=== PATIENT | female | born 1985 | race Caucasian/White ===

== ENCOUNTER 2020-06-01 18:09 | Inpatient (IN) | payer OTHER, SELFPAY ==
[~2020-06-01] VITALS: Ht 152.4 cm; Wt 69.4 kg
[2020-06-01] MEDS ORDERED: LACTATED RINGERS 1,000 ML IV SCH (18:30)
[2020-06-01] MEDS ORDERED: OXYTOCIN 20 UNITS in LACTATED RINGERS 1,000 ML IV SCH (18:30)
[2020-06-01] MEDS ORDERED: PROMETHAZINE 25 MG/ML VIAL IVP PRN (18:30)
[2020-06-01] MEDS ORDERED: METHYLERGONOVINE 0.2 MG/ML AMP IM PRN (18:30)
[2020-06-01] MEDS ORDERED: CARBOPROST 250 MCG/ML AMP IM PRN (18:30)
[2020-06-01 19:03] VITALS: BP 109/68
[2020-06-01 19:17] LABS: BASOPHILS % (AUTO) 0.4 % (0.0-2.0); EOSINOPHILS # (AUTO) 0.1 K/uL (0-0.4); EOSINOPHILS % (AUTO) 1.4 % (0.0-4.0); HEMATOCRIT 37.2 % (36-48); HEMOGLOBIN 12.4 g/dL (12.0-16.0); LYMPHOCYTES % (AUTO) 27.4 % (20.5-51.1); MEAN CORPUSCULAR HEMOGLOBIN 30 pg (27-31); MEAN CORPUSCULAR HGB CONC 33 g/dL (33-37); MEAN CORPUSCULAR VOLUME 89.9 fL (80-94); MONOCYTES # (AUTO) 0.4 K/uL (0.8-1.0); MONOCYTES % (AUTO) 5.4 % (1.7-9.3); NEUTROPHILS # (AUTO) 4.9 K/uL (1.8-7.7); NEUTROPHILS % (AUTO) 65.4 % (42.2-75.2); PLATELET COUNT (AUTO) 260 K/uL (140-450); RED BLOOD CELL COUNT(AUTO) 4.14 MIL/uL (4.20-5.40); RED CELL DISTRIBUTION WIDTH 14.6 % (11.6-13.7); WHITE BLOOD COUNT (AUTO) 7.5 K/uL (4.8-10.8)
[2020-06-01 19:20] LABS: APPEARANCE,URINE HAZY (CLEAR); BILIRUBIN,URINE NEGATIVE (NEGATIVE); BLOOD, URINE NEGATIVE (NEGATIVE); COLOR,URINE YELLOW (YELLOW); LEUKOCYTE ESTERASE ,URINE 2+ (NEGATIVE); NITRITE, URINE NEGATIVE (NEGATIVE); PH,URINE 6.5 (5.0-9.0); UGLUCOSE NEGATIVE (NEGATIVE)
[2020-06-01] MEDS ORDERED: ONDANSETRON 4 MG/2 ML VIAL IVP PRN (19:25)
[2020-06-01] MEDS ORDERED: MORPHINE SULFATE 4 MG/ML SYR IVP PRN (19:25)
[2020-06-01 19:33] LABS: ALBUMIN 2.6 g/dL (3.4-5.0); ANION GAP 14.1 (8-16); POTASSIUM 4.1 mmol/L (3.5-5.1); TOTAL BILIRUBIN 0.3 mg/dL (0.0-1.0)
[2020-06-01] MEDS ORDERED: PNV91TAB8 PO (19:33)
[2020-06-01 20:07] LABS: RBC,URINE 0 /HPF (0-5); WBC,URINE 16-25 (MOD) /HPF (0-5)
[2020-06-01] MEDS ORDERED: OXYTOCIN 20 UNITS/LR PREMIX 1,000 ML IV ONE (21:04)
[2020-06-02] MEDS ORDERED: ONDANSETRON 4 MG/2 ML VIAL ONE (03:00)
[2020-06-02] MEDS ORDERED: LIDOCAINE 1% 500 MG/50 ML VIAL ONE (04:55)
[2020-06-02] MEDS ORDERED: OXYTOCIN 10 UNITS/ML VIAL IM PRN ×2 (05:10→07:15)
[2020-06-02] MEDS ORDERED: BENZOCAINE/MENTHOL 20%-0.5% 60 GM CAN TP PRN ×2 (05:10→07:15)
[2020-06-02] MEDS ORDERED: IBUPROFEN 800 MG TAB PO PRN ×2 (05:10→07:15)
[2020-06-02] MEDS ORDERED: METHYLERGONOVINE 0.2 MG TAB PO PRN ×2 (05:10→07:15)
[2020-06-02] MEDS ORDERED: MEASLES, MUMPS, AND RUBELLA 1 VIAL SQVAC PRN ×2 (05:10→07:15)
[2020-06-02] MEDS ORDERED: METHYLERGONOVINE 0.2 MG/ML AMP IM PRN ×2 (05:10→07:15)
[2020-06-02] MEDS ORDERED: SIMETHICONE 80 MG TAB.CHEW PO PRN (07:15)
[2020-06-02] MEDS ORDERED: IBUPROFEN 600 MG TAB PO PRN (07:15)
[2020-06-02] MEDS ORDERED: DOCUSATE SODIUM 100 MG GELCAP PO PRN (07:15)
[2020-06-02] MEDS ORDERED: bisacodyL 5 MG TABEC PO PRN (07:15)
--- NOTE | 2020-06-02 09:03 | NUR ---
PATIENT HAS BEEN SCREENED AND CATEGORIZED LOW NUTRITION RISK. PATIENT WILL BE SEEN WITHIN 7 DAYS OF ADMISSION. 06/08/[address]
[2020-06-02 10:33] LABS: HEMOGLOBIN 12.3 g/dL (12.0-16.0)
[2020-06-03 05:26] LABS: HEMATOCRIT 36.1 % (36-48); HEMOGLOBIN 12.1 g/dL (12.0-16.0)
== END 2020-06-03 15:39 | disposition home or self-care (01) | DRG 560 ==
LOC: MLD 18:09 → OBSVTOIN 18:09 → MFCC 06-02 06:30
PROVIDERS: ADMIT Obstetrics & Gynecology; ATTEND Obstetrics & Gynecology
PROC: 0HQ9XZZ Repair Perineum Skin, External Approach (ICD-10-PCS; principal; 2020-06-02)
PROC: 3E033VJ Introduction of Other Hormone into Peripheral Vein, Percutaneous Approach (ICD-10-PCS; 2020-06-02)
PROC: 10E0XZZ Delivery of Products of Conception, External Approach (ICD-10-PCS; 2020-06-02)
DX: O70.0 First degree perineal laceration during delivery (principal); O69.81X0 Labor and delivery complicated by cord around neck, without compression, not applicable or unspecified; O23.43 Unspecified infection of urinary tract in pregnancy, third trimester; Z3A.39 39 weeks gestation of pregnancy; Z37.0 Single live birth
CPT/HCPCS: 36415; 59409; 76815; 80053; 81001; 85018; 85025; 86592; 86886; 86900; 86901; 87086; 90715; J0696; J2001; J2270; J2405; J2590; J7060; J7120; Q0092

== ENCOUNTER 2021-12-30 10:13 | Day surgery (SDC) | payer OTHER ==
[~2021-12-30] VITALS: Ht 157.5 cm; Wt 61.7 kg
[~2021-12-30 10:13] MED LIST: PNV91TAB8 PO
[2021-12-30] MEDS ORDERED: ALBUTEROL 0.083% 2.5 MG/3 ML NEBU INH ONE (11:45)
--- NOTE | 2021-12-30 11:45 | NUR ---
TOLD BY OTHER RT CALLED RECEIVED ABOUT EMERGENT BREATHING TREATMENT FOR PT IN RM#[id number], I ARRIVED AT ROOM#103, AND NO PATIENT OR NURSE WAS PRESENT, I WALKED OVER TO THE OPERATING ROOM, AND WAS GREETED BY DR. Jim AVILA WITH ORDERS " GIVE HER 15CC'S NOW!" I ASKED dR. AVILA WHAT HE WANTED TO GIVE THE PT EXACTLY. HE AGAIN STATED ALBUTEROL 15CC'S NOW. I EXPLAINED TO DR. AVILA, OUR ALBUTEROL WOULD BE 2.5MG/3ML OF SOLUTION, I ASKED HIM AGAIN AND SAID GIVE THE PT 15MG'S OF ALBUTEROL. I ASKED IF HE COULD PUT IN THE ORDER, HE TOLD THE NURSE TO PUT IN THE ORDER. THE NURSE PUT IN AN ORDER FOR RT REQUEST FOR SERVICE: ALBUTEROL NEBULIZER 15MG. THERE WAS NEVER AN ORDER ISSUED FOR ALBUTEROL. WITH DR. AVILA LOOKING OVER MY SHOULDER I ENTERED MY USERNAME AND ACCESSED THE MEDICATIONS IN THE P[facility], I OVER RODE THE PYXIS TO REMOVE THE REQUIRED 6 VIALS OF 2.5MG/ 3ML OF 0.083% ALBUTEROL. I ONCE AGAIN RECEVIED VERBAL ORDERS FROM THE DR FOR 15MGS OF ALBUTEROL. I RAN TO THE ICU EQUIPMENT PYXIS TO RETRIEVE A NEBULIZER, AND I WAS PUTTING MY EQUIPMENT TOGETHER, DR. AVILA THEN ORDERED ME TO ADMINISTER 10MG OF ALBUTEROL. I PLACED THE 4 VIALS OF ALBUTEROL IN THE NEBULIZER AND ADMINISTERED THE TREATMENT. THE TREATMENT STARTED AT 1150, AT 1155, DR AVILA ORDERED ME TO STOP THE TREATMENT AT 1205. AT 1200, AUSTIN GARCIA [id number] ME TO REMOVE THE TREATMENT AND THE PT WAS WHEELED TO SURGERY. THE PT.S SATURATIONS MAINTAINED AT 99% THROUGHOUT THE TREATMENT.
[2021-12-30] MEDS ORDERED: SEVOFLURANE 250 ML BTL INH ONE (12:03)
[2021-12-30] MEDS ORDERED: fentaNYL citrate 0.05 MG/ML VIAL ONE (12:03)
[2021-12-30] MEDS ORDERED: PROPOFOL 200 MG/20 ML VIAL IV ONE (12:10)
[2021-12-30] MEDS ORDERED: LIDOCAINE/EPI 1% 1:100000 20 ML VIAL INJ ONE (12:19)
[2021-12-30] MEDS ORDERED: ONDANSETRON 4 MG/2 ML VIAL ONE (12:36)
[2021-12-30] MEDS ORDERED: METOCLOPRAMIDE 10 MG/2 ML INJ VIAL ONE (12:37)
[2021-12-30] MEDS ORDERED: KETOROLAC 30 MG/ML VIAL ONE (12:38)
[2021-12-30] MEDS ORDERED: LABETALOL 100 MG/20 ML VIAL IVP PRN (13:20)
[2021-12-30] MEDS ORDERED: diphenhydrAMINE 50 MG/ML VIAL IVP PRN (13:20)
[2021-12-30] MEDS ORDERED: LACTATED RINGERS 1,000 ML IV SCH (13:20)
[2021-12-30] MEDS ORDERED: HYDROmorphone 1 MG/ML AMP IVP PRN (13:20)
[2021-12-30] MEDS ORDERED: ONDANSETRON 4 MG/2 ML VIAL IVP PRN (13:20)
[2021-12-30] MEDS ORDERED: MEPERIDINE 25 MG/ML SYR IVP PRN (13:20)
[2021-12-30] MEDS ORDERED: POTASSIUM CHLORIDE 10 MEQ TABER PO SCH (14:00)
[2021-12-31] MEDS ORDERED: ALBUTEROL 0.083% 2.5 MG/3 ML NEBU INH ONE (12:30)
== END 2021-12-30 14:35 | disposition home or self-care (01) ==
LOC: MDS 10:13 → MMU 10:14 → MDS 14:35
PROVIDERS: ATTEND Obstetrics & Gynecology
DX: N90.60 Unspecified hypertrophy of vulva (principal); N81.10 Cystocele, unspecified; Z20.822 Contact with and (suspected) exposure to COVID-19; Z79.899 Other long term (current) drug therapy
CPT/HCPCS: 36415; 56620; 81025; 84132; 87426; 94640; J1885; J2001; J2405; J2704; J2765; J3010; J7613

== ENCOUNTER 2022-09-23 10:10 | Day surgery (SDC) | payer OTHER ==
[2022-09-22 13:05] LABS: ALBUMIN 4.5 g/dL (3.4-5.0); ANION GAP 12.5 (8-16); CARBON DIOXIDE 29.3 mmol/L (21-32); CREATININE 0.9 mg/dL (0.6-1.3); POTASSIUM 3.8 mmol/L (3.5-5.1); TOTAL BILIRUBIN 0.3 mg/dL (0.0-1.0)
[2022-09-22 13:24] LABS: BASOPHILS # (AUTO) 0.1 K/uL (0.00-0.22); EOSINOPHILS # (AUTO) 0.1 K/uL (0-0.4); EOSINOPHILS % (AUTO) 1.4 % (0.0-4.0); HEMATOCRIT 41.4 % (36-48); HEMOGLOBIN 13.7 g/dL (12.0-16.0); LYMPHOCYTES # (AUTO) 3.1 K/uL (2.5-16.5); LYMPHOCYTES % (AUTO) 38.8 % (20.5-51.1); MEAN CORPUSCULAR HEMOGLOBIN 29 pg (27-31); MEAN CORPUSCULAR HGB CONC 33 g/dL (33-37); MEAN CORPUSCULAR VOLUME 88.7 fL (80-94); MONOCYTES # (AUTO) 0.4 K/uL (0.8-1.0); MONOCYTES % (AUTO) 4.5 % (1.7-9.3); NEUTROPHILS # (AUTO) 4.4 K/uL (1.8-7.7); NEUTROPHILS % (AUTO) 54.3 % (42.2-75.2); PLATELET COUNT (AUTO) 358 K/uL (140-450); RED BLOOD CELL COUNT(AUTO) 4.67 MIL/uL (4.20-5.40); RED CELL DISTRIBUTION WIDTH 13.2 % (11.6-13.7); WHITE BLOOD COUNT (AUTO) 8.1 K/uL (4.8-10.8)
[~2022-09-23] VITALS: Ht 157.5 cm; Wt 62.6 kg
[2022-09-23] MEDS ORDERED: LIDOCAINE/EPI MPF 2%1:200000 10 ML VIAL INJ ONE ×2 (11:59→12:03)
[2022-09-23] MEDS ORDERED: BUPIVACAINE MPF 0.25% 10 ML VIAL INJ ONE (11:59)
[2022-09-23] MEDS ORDERED: LIDOCAINE MPF 1% 10 ML ONE (12:00)
[2022-09-23] MEDS ORDERED: fentaNYL citrate 0.05 MG/ML VIAL ONE (12:01)
[2022-09-23] MEDS ORDERED: SUCCINYLCHOLINE CHLORIDE 200 MG/10 ML VIAL IVP ONE (12:02)
[2022-09-23] MEDS ORDERED: PROPOFOL 200 MG/20 ML VIAL IV ONE (12:02)
[2022-09-23] MEDS ORDERED: SEVOFLURANE 250 ML BTL INH ONE (13:00)
[2022-09-23] MEDS ORDERED: ONDANSETRON 4 MG/2 ML VIAL ONE (13:07)
[2022-09-23] MEDS ORDERED: ROCURONIUM 50 MG/5 ML VIAL IV ONE (13:15)
[2022-09-23] MEDS ORDERED: DEXAMETHASONE 4 MG/ML VIAL ONE (13:15)
[2022-09-23] MEDS ORDERED: SUGAMMADEX SODIUM 200 MG/2 ML VIAL IV ONE (13:37)
[2022-09-23] MEDS ORDERED: MEPERIDINE 25 MG/ML SYR IVP PRN (13:55)
[2022-09-23] MEDS ORDERED: LACTATED RINGERS 1,000 ML IV SCH (13:55)
[2022-09-23] MEDS ORDERED: diphenhydrAMINE 50 MG/ML VIAL IVP PRN (13:55)
[2022-09-23] MEDS ORDERED: ONDANSETRON 4 MG/2 ML VIAL IVP PRN (13:55)
[2022-09-23] MEDS ORDERED: HYDROmorphone PFS 2 MG/ML SYR ONE (14:11)
[2022-09-23] MEDS: HYDROmorphone 1 MG/ML AMP IVP PRN ×4 (14:13→14:43)
== END 2022-09-23 15:45 | disposition home or self-care (01) ==
LOC: MMU 10:10 → MOR 10:10
PROVIDERS: ATTEND Obstetrics & Gynecology
DX: Z30.2 Encounter for sterilization (principal); B37.31 Acute candidiasis of vulva and vagina; N30.00 Acute cystitis without hematuria; Z20.822 Contact with and (suspected) exposure to COVID-19
CPT/HCPCS: 36415; 58661; 80053; 85025; 86886; 86900; 86901; 87426; 88302; J0330; J0690; J1100; J1170; J2001; J2405; J2704; J3010; J3490; J7060